=== PATIENT | female | born 1975 | race Caucasian/White ===

== ENCOUNTER 2020-04-20 08:17 | Outpatient (CLI) | payer OTHER, SELFPAY ==
--- NOTE | ~2020-04-20 | MM_ITS ---
EXAMINATION: MM screening [facility] BI w conrado HISTORY: Screening mammogram TECHNIQUE: Craniocaudal and mediolateral oblique 3-D tomosynthesis images were obtained and synthetic 2-D images were generated. CAD analysis was submitted and interpreted. COMPARISON: 04/20/2019, 04/14/2019, 04/14/2018, 03/28/2018 BREAST PARENCHYMAL COMPOSITION: There are scattered areas of fibroglandular density. FINDINGS: RIGHT BREAST: There is no evidence of suspicious mass, calcification, or architectural distortion to suggest malignancy. There has been no significant interval change. LEFT BREAST: There are indeterminate grouped calcifications in the middle third of the upper outer qu adrant of the breast approximately 5 cm from the nipple. IMPRESSION: 1. Indeterminate left breast calcifications. 2. Magnification views are recommended. BI-RADS Category 0: Incomplete: Needs additional imaging evaluation. Reviewed, dictated and finalized at location A.
== END 2020-04-20 08:18 | disposition home or self-care (01) ==
LOC: ANHIMG 08:20
PROVIDERS: PCP Family Medicine Adolescent Medicine; Visit Provider Obstetrics & Gynecology
DX: Z12.31 Encounter for screening mammogram for malignant neoplasm of breast (principal); R92.8 Other abnormal and inconclusive findings on diagnostic imaging of breast
CPT/HCPCS: 77063; 77067

== ENCOUNTER 2020-05-17 12:08 | Outpatient (CLI) | payer OTHER, SELFPAY ==
--- NOTE | ~2020-05-17 | MM_ITS ---
EXAMINATION: MM diagnostic kim LT w conrado HISTORY: Indeterminate left breast calcifications on screening mammogram TECHNIQUE: Additional 3-D tomosynthesis images of the left breast were performed and synthetic 2-D im ages were generated. Magnification views are also obtained. CAD analysis was submitted and interprete d. COMPARISON: 04/20/2020, 04/14/2019,03/28/2018 FINDINGS: There are grouped punctate calcifications in the middle third of the upper outer quadrant o f the breast at the 2:00 location 5 cm from the nipple which appear to be round in morphology. No ass ociated mass or architectural distortion is identified. IMPRESSION: 1. Probably benign left breast calcifications. 2. Recommend 6 month follow-up left diagnostic mammogram. BI-RADS category 3, probably benign findings. Reviewed, dictated and finalized at location A.
== END 2020-05-17 12:09 | disposition home or self-care (01) ==
PROVIDERS: PCP Family Medicine Adolescent Medicine; Visit Provider Obstetrics & Gynecology
DX: R92.8 Other abnormal and inconclusive findings on diagnostic imaging of breast (principal)
CPT/HCPCS: 77061; 77065; G0279

== ENCOUNTER 2020-12-13 12:17 | Outpatient (CLI) | payer OTHER, SELFPAY ==
--- NOTE | ~2020-12-13 | MM_ITS ---
EXAMINATION: MM diagnostic kim LT w conrado HISTORY: Microcalcifications TECHNIQUE: ML, MLO and craniocaudal 3-D tomosynthesis images of the left breast were performed and sy nthetic 2-D images were generated. Magnification views. CAD analysis was submitted and interpreted. COMPARISON: 05/17/2020 diagnostic left digital mammogram BREAST PARENCHYMAL COMPOSITION: There are scattered areas of fibroglandular density. FINDINGS: Occasional benign calcifications including a stable cluster of punctate circular microcalci fications at approximately 2-3:00. No malignant calcifications are evident. No suspicious mass or arc hitectural distortion. IMPRESSION: 1. Benign calcification; no mammographic evidence of malignancy 2. Routine mammographic screening is recommended. BI-RADS Category 2: Benign finding(s). Reviewed, dictated and finalized at location A. [place] SERVICE REPRESENTATIVE
== END 2020-12-13 12:18 | disposition home or self-care (01) ==
LOC: ANHIMG 12:19
PROVIDERS: PCP Family Medicine Adolescent Medicine; Visit Provider Obstetrics & Gynecology
DX: R92.8 Other abnormal and inconclusive findings on diagnostic imaging of breast (principal)
CPT/HCPCS: 77061; 77065; G0279

== ENCOUNTER 2021-05-15 07:59 | Outpatient (CLI) | payer OTHER, SELFPAY ==
--- NOTE | 2021-05-15 08:04 | ECG_ITS ---
Measurements Intervals [place] Rate: 57 P: 67 [place]: 157 QRS: 72 QRSD: 93 T: 37 QT: 414 QTc: 404 Interpretive Statements SINUS BRADYCARDIA DELAYED PRECORDIAL R/S TRANSITION BORDERLINE ECG Electronically Signed On 05-15-2021 8:33:45 CDT by Sree Aguirre D.O.
[2021-05-15 09:27] LABS: Anion Gap 10 mmol/L (8-16); Blood Urea Nitrogen 18 mg/dL (7-17); Calcium 9.6 mg/dL (8.4-10.2); Carbon Dioxide 30 mmol/L (22-30); Chloride 100 mmol/L (98-107); Estimated Glomerular Filt Rate > 60; Glucose 102 mg/dL (65-105); Potassium 3.6 mmol/L (3.4-5.0); Sodium 140 mmol/L (137-145)
== END 2021-05-15 08:00 | disposition home or self-care (01) ==
PROVIDERS: Anesthesiology; PCP Family Medicine Adolescent Medicine; Visit Provider Surgery Plastic and Reconstructive Surgery
DX: Z01.818 Encounter for other preprocedural examination (principal); I10 Essential (primary) hypertension; R94.31 Abnormal electrocardiogram [ECG] [EKG]
CPT/HCPCS: 36415; 80048; 93005

== ENCOUNTER 2021-05-18 00:48 | Day surgery (SDC) | payer OTHER, SELFPAY ==
[2021-05-11 15:54] VITALS: BMI 27.4
--- NOTE | 2021-05-17 11:59 | WPDANESEPPF ---
Anes - Initial Pre Proc Eval Procedure: Operation Date: 05/18/21 07:30 Proposed Procedures p Abdominoplasty - Shawn Bland MD Date/Time: 05/17/21 11:59 Surgeon: Shawn Bland MD Pre Op Diagnosis: skin laxity Patient Data Age: 45 Gender: F Height: 1.68 m Weight: 77.11 kg Allergies Allergy/AdvReac Type Severity Reaction Status Date / Time No Known Allergies Allergy Mild Verified 05/18/21 06:22 Home Medications Medication Instructions Recorded Confirmed Type hydrochlorothiazide 12.5 mg capsule 12.5 mg PO DAILY cap 09/26/20 05/11/21 History levothyroxine 137 mcg tablet 137 mcg PO DAILY tablet 09/26/20 05/18/21 History Patient hx anesthesia problems: post op nausea/vomiting Family hx anesthesia problems: none [facility] Past Medical History Medical History (Updated 05/17/21 @ 11:59 by Bowen Duggan MD) HTN (hypertension) Hypothyroidism PONV (postoperative nausea and vomiting) Surgical History Surgical History History of cholecystectomy Social History Social History Smoking status: Never smoker Substance use type: does not use Living arrangements: with family Spiritual care concerns: No Anes - Eval Final PreProcedure Day of Procedure 05/17/21 11:59 Patient weight: overweight Heart: regular rate and rhythm Lungs: clear to auscultation and normal air movement Airway: Mallampati scale class II Neurological: alert and oriented Last oral intake: >/= 8 hours ASA classification: II Emergent: no Anesthetic plan: proceed Anesthesia type and monitoring: general LMA Informed Consent: The patient's anesthetic plan and its attendant risks and benefits were discussed with the patient/family/POA. Questions were solicited and answers provided to the satisfaction of the patient/family/POA.
[2021-05-18] VITALS (12 sets, daily range): BP systolic 118–141; BP diastolic 66–85; PULSE 65–85; RESP 14–20; TEMP 36.6–37.1; O2SAT 96–100; BMI 28.3
[2021-05-18] MEDS: SCOPOLAMINE 1.5 MG PATCH TRANSDERM (06:27)
[2021-05-18] MEDS: LACTATED RINGERS 1,000 ML 30 ML IV CONT ×2 (06:35→10:22)
[2021-05-18 06:37] LABS: Urine Cotinine NEGATIVE
--- NOTE | 2021-05-18 06:57 | WPDHPUPDATE1 ---
History and Physical Update Update Date/Time: 05/18/21 06:57 History and Physical has been reviewed, including an updated exam of the patient. There are NO changes in the patient's condition. Risks, benefits, and alternatives have been discussed and questions answered. Patient agrees to proceed with procedure.
--- NOTE | 2021-05-18 07:03 | P.OP_ITS ---
Procedure Note - Detailed Date of Procedure 05/18/21 Pre-op Diagnosis skin laxity Post-op Diagnosis same Procedure Performed Progressive tension abdominoplasty Surgeon Shawn Bland MD Anesthesia general Findings Tissue removed - 1460 grams Description of Procedure She is here today for abdominoplasty. Previously and again today the risks, benefits, alternatives were discussed in extensive detail. I wanted her to be very realistic about the risks involved as well as expectations. We discussed aftercare and what to monitor for. I was very upfront about the risks of wound breakdown leading to loss of skin, open wounds, and need for additional procedu res with permanent abdominal deformity. We discussed DVT/PE risks and management. Made sure answered all of her questions to her satisfaction today and consent was obtained. She was marked in the preoperative holding area with their verification. The patient was taken to the operating room placed supine on the operating table. Anesthesia was provided by anesthesiology. A felix catheter was started. She was prepped and draped in a standard sterile fashion. A surgical time-out was taken. I placed the patient in a flexed position to verify the upper and lower markings would reach. I then placed her supine. A thorough abdominal examination was completed. Stab incisions were made and used tumescent solution. I used a 5mm basket cannula to widely undermine the abdomen. Minimal suction was completed, this was utilized to undermine. A 10 blade was used to make the upper incision. I continued dissection down to the level of fascia. Elevated just what was necessary for repair of the diastasis and discontinuous undermining otherwise. I then again flexed the bed to verify the upper skin flap would reach the lower markings without tension. Once verified I placed her supine once again and a 10 blade used to make the lower incision. I elevated up to level the umbilicus and left the umbilicus intact on a well-vascularized stalk. The intervening tissue was removed. A 2 mm blunt cannula and 0.5% bupivicaine with epinephrine was injected deep to the fascia bilaterally. I plicated the diastasis recti using 0 PDO stratafix barbed suture. This was in 2 separate layers using 2 separate sutures as well. I repaired around the umbilicus leaving plenty of room for well-vascularized stalk of the umbilicus with 2-0 PDS. Also plicated lateral to the rectus muscle with 0 PDO stratafix barbed suture in mutliple layers. The patient was flexed and starting from superior to inferior began plication using 2-0 Vicryl to obliterate all space in a standard progressive tension fashion. At the umbilicus I marked out the location of the skin and inset this with 3-0 Monocryl and 4-0 nylon. I continued the remainder of the plication using 2-0 Vicryl until I reached my lower planned scar line. I trimmed any excess skin of the upper flap making sure this was a tension-free closure. I then approximated using a 3 point suture with 2-0 Vicryl followed by 3-0 stratafix ,running subcuticular 4-0 Monocryl, and tissue glue. Fluffs and an abdominal binder were placed. The patient was transferred to the bed in a flexed position. Awoken and taken to the PACU without difficulty. All instrument and sponge counts were correct at the end of the case. Estimated Blood Loss 30 Drains No Packing No Pathology none sent Complications No immediate complications Condition stable Disposition PACU
[2021-05-18] MEDS: LACTATED RINGERS IRRIG 1,000 ML, LIDOCAINE HCL 1% LOCAL INJ 50 ML, EPINEPHrine HCL INJ ... INFILTRATE (07:28)
[2021-05-18] MEDS: ceFAZolin 2 GM/D5W 50 ML 2 GM/50 ML BAG IVPB (07:28)
[2021-05-18] MEDS: BUPIVACAINE/EPINEPHRINE 0.5% 50 ML VIAL (08:31)
--- NOTE | 2021-05-18 10:50 | SUR.PHASEI ---
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
[2021-05-18] MEDS: ONDANSETRON INJ 4 MG/2 ML VIAL IV PUSH (12:23)
[2021-05-18] MEDS: LACTATED RINGERS 1,000 ML 125 ML IV CONT (12:23)
[2021-05-18] MEDS: MORPHINE SULFATE (*CRX) 2 MG/ML INJ IV PUSH (12:26)
[2021-05-18] MEDS: carisoprodoL (*CRX) 350 MG TABLET PO ×2 (13:05→20:13)
[2021-05-18] MEDS: oxyCODONE/ACETAMINOPHEN (*CRX) 5-325 MG TABLET PO ×2 (15:13→20:17)
[2021-05-18] MEDS: ENOXAPARIN 40 MG/0.4 ML SYRINGE SUB-Q (20:13)
--- NOTE | 2021-05-18 21:46 | PC.NURSE ---
pt admitted to room 289 per bed from PACU after abdominoplasty today with Dr. Bland. Pt's present; pt sleepy, but responsponding appropriately. Assessment WNL, and VSS.
[2021-05-19 01:35] VITALS: BP 130/78; PULSE 61; RESP 16; TEMP 36.3; O2SAT 99
[2021-05-19] MEDS: carisoprodoL (*CRX) 350 MG TABLET PO ×2 (02:19→08:59)
[2021-05-19] MEDS: oxyCODONE/ACETAMINOPHEN (*CRX) 5-325 MG TABLET PO ×2 (02:21→09:04)
[2021-05-19 05:30] VITALS: BP 112/65; PULSE 64; RESP 13; TEMP 36.7; O2SAT 98
--- NOTE | 2021-05-19 06:15 | WPDPN ---
Progress Note: A&P Assessment and Plan (1) Skin laxity: Code(s): L57.4 - Cutis laxa senilis Status: Acute Assessment and Plan: She is doing very well after progressive tension abdominoplasty. Will discharge home. I will see her back. She will call with any questions or concerns. Today we had a lengthy discussion about the care. What monitor for. Activity limitations. We outlined what is an emergency and want to proceed to the emergency room/ dial 911. I made sure answered all of her questions today. We discussed DVT prophylaxis. I will see her back. She will call with any questions or concerns in the meantime. Subjective Date/time seen: 05/19/21 06:15 She is doing very well after progressive tension abdominoplasty. Tolerating food. She has been up to a chair. Pain is controlled. No nausea vomiting. No fevers or chills. No shortness of breath. No chest pain. No calf tenderness. Review of Systems Review of Systems: All systems reviewed & are unremarkable except as noted in HPI and below Exam Narrative: Exam Narrative: Abdomen is healing well. No signs of infection. No hematoma. No seroma. Good color and capillary refill. No calf tenderness. Negative Homans. Const: General: comfortable, no acute distress, alert and awake; No acute distress Orientation/consciousness: oriented to person HENMT: Head: normal to inspection Ears: external ears normal General nose exam: Normal external nose present Face and sinus: normal facial exam Eyes: General: appearance normal, both eyes and all related structures Periorbital: periorbital findings normal Eyelids: eyelids normal Conjunctivae: conjunctivae normal Neck: Neck: normal visual inspection Chest: Chest palpation & inspection: normal inspection of the chest Resp: Effort & Inspection: normal respiratory effort and able to speak in complete sentences GI: Inspection: normal to inspection Neuro: General: oriented to person Psych: Appearance: grossly normal Mental Status: mental status grossly normal Objective Data Vital Signs Vital Signs: Vital Signs - 24 hr 05/18/21 06:45 05/18/21 10:22 05/18/21 10:35 Temperature 36.6 C 36.6 C Pulse Rate 65 70 85 Respiratory Rate 16 14 20 Blood Pressure 141/83 H 131/76 125/74 Pulse Oximetry 100 96 100 05/18/21 10:45 05/18/21 10:50 05/18/21 11:05 Temperature Pulse Rate 74 72 Respiratory Rate 18 16 Blood Pressure 136/77 127/83 Pulse Oximetry 97 96 96 05/18/21 11:20 05/18/21 11:35 05/18/21 11:45 Temperature Pulse Rate 69 70 75 Respiratory Rate 16 18 20 Blood Pressure 126/78 128/85 130/76 Pulse Oximetry 96 97 97 05/18/21 12:00 05/18/21 15:10 05/18/21 20:20 Temperature 36.8 C 36.8 C 37.1 C Pulse Rate 66 69 68 Respiratory Rate 16 18 14 Blood Pressure 135/75 127/78 118/66 Pulse Oximetry 97 98 96 05/19/21 01:35 05/19/21 05:30 Temperature 36.3 C L 36.7 C Pulse Rate 61 64 Respiratory Rate 16 13 Blood Pressure 130/78 112/65 Pulse Oximetry 99 98 Intake/Output Intake/Output: Intake & Output 05/16/21 05/17/21 05/18/21 05/19/21 23:59 23:59 23:59 23:59 Intake Total 800 200 Output Total 2965 625 Balance -8050 -415 Meds/Results Medications: Active Medications Generic Name Dose Route Start Last Admin Trade Name Freq PRN Reason Stop Dose Admin Carisoprodol 350 mg 05/18/21 12:00 05/19/21 02:19 Carisoprodol (*Crx) 350 Mg Tablet PO 350 mg Q6HR DENNIS Administration Docusate Sodium 100 mg 05/18/21 21:00 Docusate Sodium 100 Mg Capsule PO Q12HR DENNIS Enoxaparin Sodium 40 mg 05/18/21 17:00 05/18/21 20:13 Enoxaparin 40 Mg/0.4 Ml Syringe SUB-Q 40 mg DAILY DENNIS Administration Hydrochlorothiazide 12.5 mg 05/19/21 09:00 Hydrochlorothiazide 12.5 Mg Capsule PO DAILY DENNIS Lactated Ringer's 1,000 mls @ 125 mls/hr 05/18/21 10:25 05/18/21 12:23 Lr - Lactated Ringers Iv IV CONT 125 mls/hr .Q8H DENNIS Adminis
--- NOTE | 2021-05-19 06:20 | PM.DS ---
DS: Admitting Diagnosis Admitting Diagnosis Admitting Diagnosis: skin laxity DS: Discharge Diagnosis Discharge Diagnosis (1) Skin laxity: Code(s): L57.4 - Cutis laxa senilis Status: Acute DS: Summary Hospital Course Hospital Course: She underwent progressive tension abdominoplasty. Postoperatively she has done well. Tolerating diet. Pain controlled. Ambulating. Will discharge home. Follow-up. Time Spent with Patient Time attestation: Total time spent providing and/or coordinating discharge services: Exam Narrative: Exam Narrative: Abdomen is healing well. No signs of infection. No hematoma. No seroma. Good color and capillary refill. No calf tenderness. Negative Homans. Const: General: comfortable, no acute distress, alert and awake; No acute distress Orientation/consciousness: oriented to person HENMT: Head: normal to inspection Ears: external ears normal General nose exam: Normal external nose present Face and sinus: normal facial exam Eyes: General: appearance normal, both eyes and all related structures Periorbital: periorbital findings normal Eyelids: eyelids normal Conjunctivae: conjunctivae normal Neck: Neck: normal visual inspection Chest: Chest palpation & inspection: normal inspection of the chest Resp: Effort & Inspection: normal respiratory effort and able to speak in complete sentences GI: Inspection: normal to inspection Neuro: General: oriented to person Psych: Appearance: grossly normal Mental Status: mental status grossly normal DS: Data Data Completed and Pending Labs on day of discharge: Labs from last 24 hours 05/18/21 06:13 Cotinine Negative Discharge Plan Discharge Patient Disposition: Home, Self-Care Discharge Instructions: POST OPERATIVE DISCHARGE INSTRUCTIONS SHAWN BLAND M.D. [facility] [address] [place] [address] [address] [place] [address] [address] for 24 hours after anesthesia and while you are taking pain medication. Take all prescribed medication as directed Diet as tolerated. No lifting or activity that raises blood pressure for 48 hours. Regular walking / ambulation. No showering until directed to. Once you shower do not take pain medication before showering as the combination of medication and heat may cause you to feel dizzy or pass out. No pools or tubs for 2 weeks. Call with any questions or concerns. Slowly stand up straight as tolerated over the week. No straining or lifting more than 20 pounds for 6 weeks. Dressing Care: May shower. If you have any questions or concerns, please call the office . If it is after hours you will be directed to the station repairer exchange. Shortness of breath, chest pain, or other medical emergency dial 911 / proceed to the Emergency Room. Stand Alone Forms: General Discharge Instructions Follow-up/Referrals: Shawn Bland MD [Physician] - 1 Week Discharge Medications: New carisoprodol 350 mg Tablet 350 mg PO Q6HR Qty: 30 RF: 0 docusate sodium 100 mg Capsule 100 mg PO Q12HR PRN (Reason: Consitpation) Qty: 14 RF: 0 oxycodone-acetaminophen 5-325 mg Tablet 1 - 2 tablet PO Q6H PRN (Reason: Pain) Qty: 15 RF: 0 Continued hydrochlorothiazide 12.5 mg capsule 12.5 mg PO DAILY RF: 0 levothyroxine 137 mcg tablet 137 mcg PO DAILY RF: 0
--- NOTE | 2021-05-19 08:57 | P.PNAN_ITS ---
Anes - Prog Note Post-Op Date/Time: 05/19/21 08:57 Cardiovascular status: normal Respiratory status: normal Airway patency: baseline Mental status: baseline Post-Op hydration status: normal Vital Signs: Last Vital Signs Temp 36.7 C 05/19/21 05:30 Pulse 64 05/19/21 05:30 Resp 13 05/19/21 05:30 BP 112/65 05/19/21 05:30 Pulse Ox 98 05/19/21 05:30 Pain Score (VAS): 11/13 I/O: Intake & Output 05/18/21 05/19/21 05/19/21 23:59 07:59 15:59 Intake Total 200 Output Total 4088 647 051 [facility] [phone] Post-procedural complaints: none Patient Feedback: Patient satisfied with anesthetic care.
[2021-05-19] MEDS: hydroCHLOROthiazide 12.5 MG CAPSULE PO (08:59)
[2021-05-19] MEDS: LEVOTHYROXINE SODIUM 112 MCG TABLET PO (09:00)
[2021-05-19] MEDS: DOCUSATE SODIUM 100 MG CAPSULE PO (09:00)
[2021-05-19] MEDS: LEVOTHYROXINE SODIUM 25 MCG TABLET PO (09:00)
[2021-05-19 09:50] VITALS: PULSE 64; RESP 13; O2SAT 98
[2021-05-19 10:05] VITALS: BP 105/62; PULSE 62; RESP 18; TEMP 36.7; O2SAT 97
== END 2021-05-19 12:42 | disposition home or self-care (01) ==
LOC: ANHSURGERY 07:07 → ANHOB2 11:50
PROVIDERS: PCP Family Medicine Adolescent Medicine; Visit Provider Surgery Plastic and Reconstructive Surgery
PROC: (CPT 15830; principal; 2021-05-18 07:30)
DX: Z41.1 Encounter for cosmetic surgery (principal); L57.4 Cutis laxa senilis; I10 Essential (primary) hypertension; E03.9 Hypothyroidism, unspecified; Z79.899 Other long term (current) drug therapy
CPT/HCPCS: 15830; 15847; 80307; 99199; A9270; J0171; J0690; J1100; J1170; J1630; J1650; J2250; J2270; J2405; J2704; J3010; J7120

== ENCOUNTER 2021-07-12 15:25 | Outpatient (CLI) | payer OTHER, SELFPAY ==
--- NOTE | ~2021-07-12 | MM_ITS ---
EXAMINATION: MM screening kim BI w conrado HISTORY: Screening mammogram TECHNIQUE: Craniocaudal and mediolateral oblique 3-D tomosynthesis images were obtained and synthetic 2-D images were generated. CAD analysis was submitted and interpreted. COMPARISON: 12/13/2020 and 05/17/2020 diagnostic left mammogram examinations 04/20/2020 bilateral digital screening mammogram 620 right diagnostic mammogram and limited right breast ultrasound 04/14/2019 bilateral digital screening mammogram BREAST PARENCHYMAL COMPOSITION: There are scattered areas of fibroglandular density. FINDINGS: There is no evidence of suspicious mass, calcification, or architectural distortion to sugg est malignancy in either breast. There has been no suspicious interval change. IMPRESSION: 1. No mammographic evidence of malignancy. 2. Recommend routine screening mammography in one year. BI-RADS Category 1: Negative Reviewed, dictated and finalized at location A.
== END 2021-07-12 15:26 | disposition home or self-care (01) ==
PROVIDERS: PCP Family Medicine Adolescent Medicine; Visit Provider Obstetrics & Gynecology
DX: Z12.31 Encounter for screening mammogram for malignant neoplasm of breast (principal)
CPT/HCPCS: 77063; 77067

== ENCOUNTER 2022-09-18 14:35 | Outpatient (CLI) | payer OTHER, SELFPAY ==
--- NOTE | ~2022-09-18 | MM_ITS ---
EXAMINATION: MM screening kim BI w conrado HISTORY: Screening TECHNIQUE: Craniocaudal and mediolateral oblique 3-D tomosynthesis images were obtained and synthetic 2-D images were generated. CAD analysis was submitted and interpreted. COMPARISON: Comparison to multiple prior studies sequentially, with oldest reviewed study dated 04/14. BREAST PARENCHYMAL COMPOSITION: There are scattered areas of fibroglandular density. FINDINGS: There is no evidence of suspicious mass, calcification, or architectural distortion to sugg est malignancy in either breast. There has been no suspicious interval change. IMPRESSION: 1. No mammographic evidence of malignancy. 2. Recommend routine screening mammography in one year. BI-RADS Category 1: Negative Reviewed, dictated and finalized at location A. 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
== END 2022-09-18 14:36 | disposition home or self-care (01) ==
LOC: ANHIMG 14:35
PROVIDERS: PCP Family Medicine Adolescent Medicine; Visit Provider Obstetrics & Gynecology
DX: Z12.31 Encounter for screening mammogram for malignant neoplasm of breast (principal)
CPT/HCPCS: 77063; 77067

== ENCOUNTER 2023-03-28 05:45 | Day surgery (SDC) | payer OTHER, SELFPAY ==
[2023-03-13 14:40] VITALS: BMI 28.4
--- NOTE | 2023-03-27 15:07 | PM.HPGS ---
History of Present Illness History of Present Illness Consent: Risks, benefits, and alternatives have been discussed and questions answered. Patient agrees to proceed with procedure. Chief complaint: Neoplasm Screening Narrative: Janet Macias is a 47 year old female referred for colon cancer screening. Her father had colon cancer. Review of Systems Review of Systems: All systems reviewed & are unremarkable except as noted in HPI and below PMFSH Past Medical History Medical History Congestion of nasal sinus Family history of skin cancer Fever History of ott full thickness - face HTN (hypertension) Hypothyroidism Lateral epicondylitis of left elbow Left elbow pain Wears glasses Surgical History Surgical History H/O prior ablation treatment History of abdominoplasty 05/24 History of cholecystectomy 2005 Family History Family History Father Carcinoma of colon Mother Hypertension Social History Social History Smoking status: Never smoker Second hand tobacco smoke exposure: No Alcohol intake: current Alcohol use details: rarely Substance use: never Substance use type: does not use Living arrangements: with family Occupation/Education: occupation Gender identity (if verbalized by the patient): Female Sexual Orientation (if Verbalized by the Patient): Straight or Heterosexual Spiritual care concerns: No Agree to blood products: Yes Meds Home Medications and Allergies Home Medications Medication Instructions Recorded Confirmed Type levothyroxine 137 mcg tablet 137 mcg PO DAILY #90 tabs 02/14/23 03/28/23 Rx lisinopril 20 mg tablet 20 mg PO DAILY #90 tabs 02/20/23 03/28/23 Rx Allergies Allergy/AdvReac Type Severity Reaction Status Date / Time No Known Allergies Allergy Mild Verified 03/28/23 06:14 Exam Resp: Auscultation: clear to auscultation bilaterally Cardio: Rate: regular rate Rhythm: regular rhythm GI: GI Palp: Yes Soft to palpation and No Tenderness to palpation present (GI) Assessment and Plan Assessment and plan (1) Colon cancer screening: Code(s): Z12.11 - Encounter for screening for malignant neoplasm of colon Status: Acute Assessment and Plan: Colonoscopy with possible biopsy or polypectomy or cautery or injection of substances.
[2023-03-28 06:15] VITALS: BMI 29.7
[2023-03-28 06:38] VITALS: BP 134/86; PULSE 78; RESP 18; TEMP 37; O2SAT 99
[2023-03-28] MEDS: LACTATED RINGERS 1,000 ML 150 ML IV CONT (07:21)
--- NOTE | 2023-03-28 07:22 | P.PNAN_ITS ---
Anes - Initial Pre Proc Eval Procedure: Operation Date: 03/28/23 07:30 Proposed Procedures p Screening Colonoscopy - Juan C Meraz MD Date/Time: 03/28/23 07:22 Surgeon: Juan C Meraz MD Pre Op Diagnosis: Neoplasm Screening Patient Data Age: 47 Gender: F Height: 1.68 m Weight: 83.5 kg Last Vital Signs Temp 37.0 C 03/28/23 06:38 Pulse 78 03/28/23 06:38 Resp 18 03/28/23 06:38 BP 134/86 03/28/23 06:38 Pulse Ox 99 03/28/23 06:38 O2 Del Method Room Air 03/28/23 06:38 Allergies Allergy/AdvReac Type Severity Reaction Status Date / Time No Known Allergies Allergy Mild Verified 03/28/23 06:14 Home Medications Medication Instructions Recorded Confirmed Type levothyroxine 137 mcg tablet 137 mcg PO DAILY #90 tabs 02/14/23 03/28/23 Rx lisinopril 20 mg tablet 20 mg PO DAILY #90 tabs 02/20/23 03/28/23 Rx Patient hx anesthesia problems: none Family hx anesthesia problems: none Results Review: All pre-operative results and documents have been reviewed as part of the pre- operative evaluation. [facility] Past Medical History Medical History Congestion of nasal sinus Family history of skin cancer Fever History of ott full thickness - face HTN (hypertension) Hypothyroidism Lateral epicondylitis of left elbow Left elbow pain Wears glasses Surgical History Surgical History H/O prior ablation treatment History of abdominoplasty 05/24 History of cholecystectomy 2005 Family History Family History Father Carcinoma of colon Mother Hypertension Social History Social History Smoking status: Never smoker Second hand tobacco smoke exposure: No Alcohol intake: current Alcohol use details: rarely Substance use: never Substance use type: does not use Living arrangements: with family Occupation/Education: occupation Gender identity (if verbalized by the patient): Female Sexual Orientation (if Verbalized by the Patient): Straight or Heterosexual Spiritual care concerns: No Agree to blood products: Yes Anes - Eval Final PreProcedure Day of Procedure 03/28/23 07:22 Patient weight: overweight Heart: regular rate and rhythm Lungs: clear to auscultation Airway: Mallampati scale class II Neurological: alert and oriented Last oral intake: >/= 8 hours ASA classification: II Emergent: no Anesthetic plan: proceed Anesthesia type and monitoring: general GIVS and standard monitoring Results Review: All pre-operative results and documents have been reviewed as part of the pre- operative evaluation. Informed Consent: The patient's anesthetic plan and its attendant risks and benefits were discussed with the patient/family/POA. Questions were solicited and answers provided to the satisfaction of the patient/family/POA.
[2023-03-28 07:48] VITALS: BP 113/73; PULSE 58; RESP 16; O2SAT 100
[2023-03-28 07:58] VITALS: BP 112/83; PULSE 68; RESP 16; O2SAT 100
[2023-03-28 08:08] VITALS: BP 116/77; PULSE 59; RESP 16; O2SAT 100
--- NOTE | 2023-03-28 08:23 | WPDANESPN ---
Anes - Prog Note Post-Op Date/Time: 03/28/23 08:23 Cardiovascular status: normal Respiratory status: normal Airway patency: baseline Mental status: baseline Post-Op hydration status: normal Vital Signs: Last Vital Signs Temp 37.0 C 03/28/23 06:38 Pulse 59 L 03/28/23 08:08 Resp 16 03/28/23 08:08 BP 116/77 03/28/23 08:08 Pulse Ox 100 03/28/23 08:08 O2 Del Method Room Air 03/28/23 08:08 Pain Score (VAS): 0/10 I/O: Intake & Output 03/27/23 03/28/23 03/28/23 23:59 07:59 15:59 Intake Total 500 250 Balance 500 250 Patient Feedback: Patient satisfied with anesthetic care.
== END 2023-03-28 08:25 | disposition home or self-care (01) ==
PROVIDERS: PCP Family Medicine Adolescent Medicine; Visit Provider Internal Medicine Gastroenterology
PROC: 0DJD8ZZ Inspection of Lower Intestinal Tract, Via Natural or Artificial Opening Endoscopic (ICD-10-PCS; CPT 45378; principal; 2023-03-28 07:30)
DX: Z12.11 Encounter for screening for malignant neoplasm of colon (principal)
CPT/HCPCS: 45378

== ENCOUNTER 2023-12-31 15:59 | Outpatient (CLI) | payer OTHER, SELFPAY ==
--- NOTE | ~2023-12-31 | MM_ITS ---
EXAMINATION: MM screening [facility] BI w [facility] HISTORY: Screening TECHNIQUE: Craniocaudal and mediolateral oblique 3-D tomosynthesis images were obtained and synthetic 2-D images were generated. CAD analysis was submitted and interpreted. COMPARISON: Comparison to multiple prior studies sequentially, with oldest reviewed study dated 04/20. BREAST PARENCHYMAL COMPOSITION: There are scattered areas of fibroglandular density. FINDINGS: There is no evidence of suspicious mass, calcification, or architectural distortion to sugg est malignancy in either breast. There has been no suspicious interval change. IMPRESSION: 1. No mammographic evidence of malignancy. 2. Recommend routine screening mammography in one year. BI-RADS Category 1: Negative Reviewed, dictated and finalized at location A. [employer]
== END 2023-12-31 16:00 | disposition home or self-care (01) ==
PROVIDERS: PCP Family Medicine Adolescent Medicine; Visit Provider Obstetrics & Gynecology
DX: Z12.31 Encounter for screening mammogram for malignant neoplasm of breast (principal)
CPT/HCPCS: 77063; 77067

== ENCOUNTER 2025-02-16 15:47 | Outpatient (CLI) | payer OTHER, SELFPAY ==
--- NOTE | ~2025-02-16 | MM_ITS ---
EXAMINATION: MM screening [facility] BI w conrado HISTORY: Screening TECHNIQUE: Craniocaudal and mediolateral oblique 3-D tomosynthesis images were obtained and synthetic 2-D images were generated. CAD analysis was submitted and interpreted. COMPARISON: Comparison to multiple prior studies sequentially, with oldest reviewed study dated 04/20. BREAST PARENCHYMAL COMPOSITION: . Not Dense: The breasts are almost entirely fatty. FINDINGS: There is no evidence of suspicious mass, calcification, or architectural distortion to sugg est malignancy in either breast. There has been no suspicious interval change. IMPRESSION: 1. No mammographic evidence of malignancy. 2. Recommend routine screening mammography in one year. BI-RADS Category 1: Negative Reviewed, dictated and finalized at location B.
== END 2025-02-16 15:48 | disposition home or self-care (01) ==
PROVIDERS: PCP Family Medicine Adolescent Medicine; Visit Provider Obstetrics & Gynecology
DX: Z12.31 Encounter for screening mammogram for malignant neoplasm of breast (principal)
CPT/HCPCS: 77063; 77067